=== PATIENT | male | born 1960 | race Caucasian/White ===

== ENCOUNTER 2022-06-09 08:30 | Day surgery (SDC) | payer BC ==
[~2022-06-09 08:30] MED LIST: Lactated Ringers 1,000 ML IV SCH; Sodium Chloride 0.9% 10 ML Syringe FLUSH PRN
[2022-06-09] MEDS ORDERED: Simethicone Drops 40 MG/0.6 ML 30 ML Bottle ONE (09:52)
[2022-06-09] MEDS ORDERED: Lidocaine 2% 5 ML SDV IV ONE (14:07)
[2022-06-09] MEDS ORDERED: Propofol 200 MG/20 ML SDV IV ONE (14:07)
== END 2022-06-09 11:26 | disposition home or self-care (01) ==
LOC: FB.SDS 08:30
PROVIDERS: ATTEND Surgery
DX: D12.2 Benign neoplasm of ascending colon (principal); K62.1 Rectal polyp; K42.9 Umbilical hernia without obstruction or gangrene; E11.9 Type 2 diabetes mellitus without complications; E66.01 Morbid (severe) obesity due to excess calories; Z86.010 Personal history of colon polyps; Z68.37 Body mass index [BMI] 37.0-37.9, adult; Z80.0 Family history of malignant neoplasm of digestive organs; Z79.84 Long term (current) use of oral hypoglycemic drugs; Z79.899 Other long term (current) drug therapy; Z87.891 Personal history of nicotine dependence
CPT/HCPCS: 00811; 45385; 88305; A9270; J2704; J7120